=== PATIENT | male | born 1960 | race Caucasian/White ===

== ENCOUNTER 2017-07-10 02:39 | Inpatient (IN) | payer OTHER ==
[2017-07-10] VITALS (7 sets, daily range): BP systolic 100–131; BP diastolic 63–79
[~2017-07-10] VITALS: Ht 175.3 cm; Wt 120.3 kg
[2017-07-10 03:20] LABS: CALCIUM 8.4 mg/dL (8.5-10.1); CARBON DIOXIDE 29.6 mmol/L (21-32); CHLORIDE SERUM 103 mmol/L (98-107); CREATININE SERUM 0.9 mg/dL (0.7-1.3); GFR1 > 60 mL/min; GLUCOSE SERUM 138 mg/dL (74-106); POTASSIUM SERUM 3.8 mmol/L (3.5-5.1); SODIUM SERUM 139 mmol/L (136-145)
[2017-07-10 03:26] LABS: ALKALINE PHOSPHATASE 73 U/L (46-116); ALT/SGPT 59 U/L (16-63); AST/SGOT 36 U/L (15-37); BILIRUBIN TOTAL 0.3 mg/dL (0.20-1.00); TOTAL PROTEIN, SERUM 7.2 g/dL (6.4-8.2)
[2017-07-10 03:29] LABS: BASOPHIL % 0.5 % (0-2); PLATELET COUNT 226 x10^3mcL (130-400); RED CELL DISTRIBUTION WIDTH 13.4 % (11.5-14.5)
[2017-07-10 03:39] LABS: ALBUMIN 3.2 g/dL (3.4-5.0)
[2017-07-10 04:39] LABS: MAGNESIUM 1.8 mg/dL (1.8-2.4); PHOSPHOROUS 3.1 mg/dL (2.5-4.9)
[2017-07-10 04:49] LABS: FREE T4 0.94 ng/dL (0.76-1.46); T3 TOTAL 1.33 ng/mL; T4(THYROXINE) 8.4 ug/dL (4.7-13.3)
[2017-07-10] MEDS ORDERED: APAP/HYDROCODON1 T11 (07:27)
[2017-07-10 10:45] LABS: AMPHETAMINE QUAL UR NONE DETECTED (NEG <=1000)
[2017-07-10 11:43] LABS: microscopic required? YES; urine erythrocyte TRACE (NEGATIVE)
[2017-07-10] MEDS ORDERED: LIPI10 PO (15:45)
[2017-07-10] MEDS ORDERED: METOPROLOL TART25 M1 PO (15:45)
[2017-07-10] MEDS ORDERED: NIT0.4 SL (15:45)
[2017-07-10] MEDS ORDERED: ZES5 PO (15:46)
[2017-07-10] MEDS ORDERED: ECO81 PO (15:46)
[2017-07-11 06:07] VITALS: BP 113/78
[2017-07-11 07:55] LABS: BASOPHIL % 0.5 % (0-2); PLATELET COUNT 232 x10^3mcL (130-400); RED CELL DISTRIBUTION WIDTH 13.5 % (11.5-14.5)
[2017-07-11 08:03] LABS: CALCIUM 8.7 mg/dL (8.5-10.1); CARBON DIOXIDE 32.9 mmol/L (21-32); CHLORIDE SERUM 102 mmol/L (98-107); CREATININE SERUM 0.9 mg/dL (0.7-1.3); GFR1 > 60 mL/min; GLUCOSE SERUM 117 mg/dL (74-106); SODIUM SERUM 138 mmol/L (136-145)
[2017-07-11 08:29] LABS: POTASSIUM SERUM 5.6 mmol/L (3.5-5.1)
[2017-07-11 09:33] VITALS: BP 113/79
[2017-07-11 09:38] VITALS: BP 113/79
== END 2017-07-11 11:43 | disposition short-term general hospital (02) | DRG 311 ==
LOC: ED 02:39 → DU 04:11
PROVIDERS: Emergency Medicine; ADMIT Family Medicine
DX: I24.9 Acute ischemic heart disease, unspecified (principal); E44.0 Moderate protein-calorie malnutrition; E78.5 Hyperlipidemia, unspecified; M51.86 Other intervertebral disc disorders, lumbar region; G89.29 Other chronic pain; M54.9 Dorsalgia, unspecified; I10 Essential (primary) hypertension; E66.9 Obesity, unspecified; Z87.891 Personal history of nicotine dependence; Z68.39 Body mass index [BMI] 39.0-39.9, adult
CPT/HCPCS: 82962; 83880; 84439; J1644; J2270; J2405; J3490; J7030; Q0092